=== PATIENT | male | born 2000 | race Two or more races ===

== ENCOUNTER 2019-06-25 01:46 | Emergency (ER) | payer OTHER ==
[~2019-06-25] VITALS: Ht 175.3 cm; Wt 65.3 kg
[2019-06-25 01:53] VITALS: BP 141/67
[2019-06-25] MEDS ORDERED: ORPHENADRINE ER 100 MG TABLET.ER PO ONE ×2 (02:23→02:30)
[2019-06-25] MEDS ORDERED: IBUPROFEN 600 MG TABLET. PO ONE ×2 (02:23→02:30)
[2019-06-25] MEDS ORDERED: MELO7.5T29 PO (02:24)
[2019-06-25] MEDS ORDERED: ORPH-16 PO (02:24)
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
== END 2019-06-25 02:30 | disposition home or self-care (01) ==
LOC: ER 01:46
DX: S39.012A Strain of muscle, fascia and tendon of lower back, initial encounter (principal); Z88.1 Allergy status to other antibiotic agents; V49.9XXA Car occupant (driver) (passenger) injured in unspecified traffic accident, initial encounter; Y93.89 Activity, other specified; Y92.89 Other specified places as the place of occurrence of the external cause; Y99.8 Other external cause status
CPT/HCPCS: 99283

== ENCOUNTER 2020-09-29 02:00 | Emergency (ER) | payer OTHER ==
[~2020-09-29] VITALS: Ht 175.3 cm; Wt 70.0 kg
[~2020-09-29 02:00] MED LIST: MELO7.5T29 PO; ORPH-16 PO
--- NOTE | 2020-09-29 02:05 | PHYS DOC ---
Past History Past Medical History: No Pertinent History, GERD Past Surgical History: No Surgical History Smoking: Non-smoker Alcohol Use: None Drug Use: None General Adult HPI: HPI: ".. I think I got a bad pork chop.. I got sick right after eating it.. but my friend did nt get sick... " .. I vomited. up part of the chop... 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 Patient does have some localization of pain in the epigastric and right upper quadrant on rebound. Patient denies any other new foods or questionable foods other than the pork chop. Patient denies any history of previous gallbladder issues with him or family members. No history of colitis with him or family members. No history of kidney stones with him or family members. Patient is normally healthy. Patient has not been overseas since 2019. Patient has not had any recent ill contacts. No history of trauma. Good physical condition. Up-to-date with vaccinations. Normally follows at [facility]. No recent travel. Review of Systems: Review of Systems: Constitutional: Denies fever or chills Eyes: Denies change in visual acuity HENT: Denies nasal congestion or sore throat Respiratory: Denies cough or shortness of breath Cardiovascular: Denies chest pain or edema GI: Complains of abdominal pain, nausea, vomiting,. Denies bloody stools or diarrhea : Denies dysuria Musculoskeletal: Denies back pain or joint pain Integument: Denies rash Neurologic: Denies headache, focal weakness or sensory changes Endocrine: Denies polyuria or polydipsia Lymphatic: Denies swollen glands Psychiatric: Denies depression or anxiety Family History: Family History: Noncontributory to presentation Current Medications: Current Meds: See nursing for home meds Allergies: Allergies: Allergies Coded Allergies Type Severity Reaction Last Updated Verified amoxicillin Allergy Unknown Unknown 06/25/19 Yes Physical Exam: PE: Constitutional: Well developed, well nourished, moderate acute distress, non- toxic appearance. [] HENT: Normocephalic, atraumatic, bilateral external ears normal, oropharynx moist, no oral exudates, nose normal. [] Eyes: PERRLA, EOMI, conjunctiva normal, no discharge. [] Neck: Normal range of motion, no tenderness, supple, no stridor. [] Cardiovascular:Heart rate regular rhythm, no murmur [] Lungs & Thorax: Bilateral breath sounds equal on auscultation [] Abdomen: Bowel sounds are active , distended, , soft, generalized tenderness, some localization to epigastric right upper quadrant on rebound no masses, no pulsatile masses. [] Skin: Warm, dry, no erythema, no rash. [] Back: No tenderness, no CVA tenderness. [] Extremities: No tenderness, no cyanosis, no clubbing, ROM intact, no edema. [] No psoas sign. Neurologic: Alert and oriented X 3, normal motor function, normal sensory function, no focal deficits noted. [] Psychologic: Affect anxious, judgement normal, mood normal. [] EKG: EKG: [] Radiology/Procedures: Radiology/Procedures: [][address] [address] IMAGING REPORT Signed PATIENT: ABEL ARTCCOUNT: [id number] : 2000 LOCATION: ER AGE: 20 SEX: M EXAM STATUS: REG ER ORD. PHYSICIAN: NICK LINDSAY MD REASON: Abdomen pain, nausea PROCEDURE: ACUTE ABDOMEN SERIES ACUTE ABDOMEN SERIES History: Abdominal pain, nausea. Comparison: None. Findings: Frontal chest and supine and upright views of the abdomen. Cardiomediastinal silhouette is normal. There is no pleural effusion or pneumothorax. The lungs are clear. No pneumoperitoneum is identified. No dilated air-filled loops of bowel are seen. Bowel gas pattern is nonobstructive. There is mild colon stool volume. No obvious organomegaly. Bones unremarkable. IMPRESSION: 1. No acute cardiopulmonary process. 2. Nonobstructive bowel gas pattern. Electronically signed by: Quinn Montilla MD (09/29/2020 3:29 AM) [facility] DICTATED AND SIGNED BY: QUINN MONTILLA MD DATE: 09/29/20326 CC: NICK LINDSAY MD; PCP,NO ~MTH0 0 Heart Score: Risk Factors: Risk Factors: DM, Current or recent (<one month) smoker, HTN, HLP, family history of CAD, obesity. Risk Scores: Score 0 - 3: 2.5% MACE over next 6 weeks - Discharge Home Score 4 - 6: 20.3% MACE over next 6 weeks - Admit for Clinical Observation Score 7 - 10: 72.7% MACE over next 6 weeks - Early Invasive Strategies Course & Med Decision Making: Course & Med Decision Making Pertinent Labs and Imaging studies reviewed. (See chart for details) Patient stay on a clear fluid diet. Push fluids. No solids. No milk products x24 to 48 hours. Follow-up with Ker[facility]. Tylenol and ibuprofen for pain. For active vomiting may take Zofran 8 mg up to 3 times a day. Return if any concerns. Pepcid 20 mg up to twice daily for GERD complaints. Follow-up primary. Impression: 1. Abdomen Pain 2. Viral Syndrome 3. Mild leukocytosis 12, 0 4. CK= 318 [] Dragon Disclaimer: Dragon Disclaimer: This electronic medical record was generated, in whole or in part, using a voice recognition dictation system. Departure Departure: Referrals: PCP,JOVANNI (PCP) Scripts Famotidine (PEPCID) 20 Mg Tablet 1 TAB PO BID for gerd, #60 TAB 5 Refills Prov: NICK LINDSAY MD 09/29/20 Ibuprofen (IBUPROFEN) 400 Mg Tablet 400 MG PO QIDPRN PRN for fever / pain, #120 TAB Prov: NICK LINDSAY MD 09/29/20 Acetaminophen (ACETAMINOPHEN) 500 Mg Tablet 1000 MG PO QIDPRN PRN for pain and fever, #120 TAB Prov: NICK LINDSAY MD 09/29/20 Ondansetron Hcl (ZOFRAN) 4 Mg Tablet 8 MG PO QIDPRN PRN for nv, #30 TAB Prov: NICK LINDSAY MD 09/29/20 Dragon Disclaimer This chart was dictated in whole or in part using Voice Recognition software in a busy, high-work load, and often noisy Emergency Department environment. It may contain unintended and wholly unrecognized errors or omissions. Dragon Disclaimer This chart was dictated in whole or in part using Voice Recognition software in a busy, high-work load, and often noisy Emergency Department environment. It may contain unintended and wholly unrecognized errors or omissions. NICK LINDSAY MD Sep 29, 2020 02:04
[2020-09-29 02:22] VITALS: BP 117/73
[2020-09-29] MEDS: ONDANSETRON PF 4 MG/2 ML VIAL. IVP ONE (02:43)
[2020-09-29] MEDS: KETOROLAC 30 MG/ML VIAL. IVP ONE (02:43)
[2020-09-29] MEDS: FAMOTIDINE 20 MG/2 ML VIAL IVP ONE (02:43)
[2020-09-29] MEDS: IV RINGERS SOLUTION,LACTATED 1,000 ML IV SCH (02:44)
[2020-09-29] MEDS: LIDO:MAALOX 1:1 20 ML SINGLE DOSE. PO ONE (02:44)
[2020-09-29] MEDS ORDERED: IBUP400T18 PO (02:53)
[2020-09-29] MEDS ORDERED: ONDA4TAB7 PO (02:53)
[2020-09-29] MEDS ORDERED: ACET500T68 PO (02:53)
[2020-09-29] MEDS ORDERED: FAMO-63 PO (02:53)
[2020-09-29 02:56] LABS: BASO % 0 % (0-3); EOS # 0.2 x10^3/uL (0.0-0.7); EOS % 1 % (0-3); HEMOGLOBIN 15.7 g/dL (13.0-17.5); LYMPH # 2.4 x10^3/uL (1.0-4.8); LYMPH % 20 % (24-48); MEAN CORPUSCULAR HEMOGLOBIN 29 pg (25-35); MEAN CORPUSCULAR HGB CONC 33 g/dL (31-37); MEAN CORPUSCULAR VOLUME 88 fL (79-100); MONO # 0.8 x10^3/uL (0.0-1.1); MONO % 7 % (0-9); NEUT # 8.6 x10^3uL (1.8-7.7); NEUT % 72 % (31-73); PLATELET COUNT 196 x10^3/uL (140-400); RED BLOOD COUNT 5.38 x10^6/uL (4.30-5.70); RED CELL DISTRIBUTION WIDTH 12.9 % (11.5-14.5)
[2020-09-29 02:57] LABS: CALCIUM 8.9 mg/dL (8.5-10.1); CREATININE 1.1 mg/dL (0.7-1.3); GFR 83.7; POTASSIUM 3.7 mmol/L (3.5-5.1)
[2020-09-29 03:04] LABS: DIRECT BILIRUBIN 0.2 mg/dL (0.0-0.2); TOTAL BILIRUBIN 1.1 mg/dL (0.2-1.0); TOTAL PROTEIN 7.6 g/dL (6.4-8.2)
[2020-09-29 03:11] LABS: BACTERIA,URINE FEW /HPF (0-FEW); BILIRUBIN,URINE NEG (NEG); CLARITY,URINE CLEAR; COLOR,URINE YELLOW; GLUCOSE,URINE NEG (NEG); NITRITE,URINE NEG (NEG); RBC,URINE 0 /HPF (0-2); SQUAMOUS EPITHELIAL CELL,UR OCC /LPF; UROBILINOGEN,URINE 0.2 mg/dL (0.2 mg/dL); WBC,URINE 0 /HPF (0-4)
--- NOTE | 2020-09-29 03:31 | RAD ---
ACUTE ABDOMEN SERIES History: Abdominal pain, nausea. Comparison: None. Findings: Frontal chest and supine and upright views of the abdomen. Cardiomediastinal silhouette is normal. There is no pleural effusion or pneumothorax. The lungs are clear. No pneumoperitoneum is identified. No dilated air-filled loops of bowel are seen. Bowel gas pattern i s nonobstructive. There is mild colon stool volume. No obvious organomegaly. Bones unremarkable. IMPRESSION: 1. No acute cardiopulmonary process. 2. Nonobstructive bowel gas pattern. Electronically signed by: Quinn Archer MD (09/29/2020 3:29 AM) [facility]
== END 2020-09-29 03:45 | disposition home or self-care (01) ==
LOC: ER 02:00
DX: B34.9 Viral infection, unspecified (principal); D72.829 Elevated white blood cell count, unspecified; R74.8 Abnormal levels of other serum enzymes; K21.9 Gastro-esophageal reflux disease without esophagitis; Z88.1 Allergy status to other antibiotic agents
CPT/HCPCS: 36415; 74022; 80048; 80076; 81001; 82150; 82550; 83690; 84484; 85025; 85610; 85730; 96361; 96374; 96375; 99284; J1885; J2405; J3490; J7120

== ENCOUNTER 2020-12-27 04:57 | Emergency (ER) | payer OTHER ==
[~2020-12-27] VITALS: Ht 175.3 cm; Wt 70.0 kg
[~2020-12-27 04:57] MED LIST changes: +ACET500T68 PO; +FAMO-63 PO; +IBUP400T18 PO; +ONDA4TAB7 PO
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
[2020-12-27] MEDS ORDERED: BACITRACIN ZINC TOPICAL OINT PACKET. TP ONE (05:30)
[2020-12-27] MEDS ORDERED: ACETAMINOPHEN 500 MG TABLET PO ONE (05:30)
[2020-12-27] MEDS ORDERED: LIDOCAINE 2% 20 ML VIAL. IJ ONE (05:30)
[2020-12-27] MEDS ORDERED: ACET325T9 PO (05:40)
[2020-12-27] MEDS ORDERED: IBUP400T18 PO (05:40)
[2020-12-27] MEDS ORDERED: BACI28.34 TP (05:40)
[2020-12-27] MEDS ORDERED: HYDR-1179 PO (05:40)
[2020-12-27] MEDS ORDERED: ORPHENADRINE CITRATE 60 MG/2 ML VIAL. IM ONE (06:00)
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
[2020-12-27 07:00] VITALS: BP 130/75
== END 2020-12-27 07:00 | disposition home or self-care (01) ==
LOC: ER 04:57
DX: S01.01XA Laceration without foreign body of scalp, initial encounter (principal); S30.810A Abrasion of lower back and pelvis, initial encounter; M54.2 Cervicalgia; M54.6 Pain in thoracic spine; R51.9 Headache, unspecified; R07.89 Other chest pain; K21.9 Gastro-esophageal reflux disease without esophagitis; Z88.1 Allergy status to other antibiotic agents; V47.5XXA Car driver injured in collision with fixed or stationary object in traffic accident, initial encounter; Y92.488 Other paved roadways as the place of occurrence of the external cause; Y93.89 Activity, other specified; Y99.8 Other external cause status
CPT/HCPCS: 12002; 70450; 71046; 72125; 72128; 72131; 96372; 99285; J2001; J2360

== ENCOUNTER 2021-01-14 22:45 | Emergency (ER) | payer OTHER ==
[~2021-01-14] VITALS: Ht 175.3 cm; Wt 69.0 kg
[~2021-01-14 22:45] MED LIST changes: +ACET325T9 PO; +BACI28.34 TP; +HYDR-1179 PO
[2021-01-14] MEDS ORDERED: ORPH-16 PO (23:17)
--- NOTE | 2021-01-14 23:17 | PHYS DOC ---
Past History Past Medical History: No Pertinent History, GERD Past Surgical History: No Surgical History Smoking: Non-smoker Alcohol Use: None Drug Use: None General Adult EDM: Chief Complaint: BACK PAIN OR INJURY HPI: HPI: Patient is a [age] year old [sex] who presents with [] Review of Systems: Review of Systems: Constitutional: Denies fever or chills Eyes: Denies change in visual acuity HENT: Denies nasal congestion or sore throat Respiratory: Denies cough or shortness of breath Cardiovascular: Denies chest pain or edema GI: Denies abdominal pain, nausea, vomiting, bloody stools or diarrhea : Denies dysuria Musculoskeletal: Denies back pain or joint pain Integument: Denies rash Neurologic: Denies headache, focal weakness or sensory changes Endocrine: Denies polyuria or polydipsia Lymphatic: Denies swollen glands Psychiatric: Denies depression or anxiety Allergies: Allergies: Allergies Coded Allergies Type Severity Reaction Last Updated Verified amoxicillin Allergy Unknown Unknown 06/25/19 Yes Physical Exam: PE: Constitutional: Well developed, well nourished, no acute distress, non-toxic appearance. [] HENT: Normocephalic, atraumatic, bilateral external ears normal, oropharynx moist, no oral exudates, nose normal. [] Eyes: PERRLA, EOMI, conjunctiva normal, no discharge. [] Neck: Normal range of motion, no tenderness, supple, no stridor. [] Cardiovascular:Heart rate regular rhythm, no murmur [] Lungs & Thorax: Bilateral breath sounds clear to auscultation [] Abdomen: Bowel sounds normal, soft, no tenderness, no masses, no pulsatile masses. [] Skin: Warm, dry, no erythema, no rash. [] Back: No tenderness, no CVA tenderness. [] Extremities: No tenderness, no cyanosis, no clubbing, ROM intact, no edema. [] Neurologic: Alert and oriented X 3, normal motor function, normal sensory function, no focal deficits noted. [] Psychologic: Affect normal, judgement normal, mood normal. [] Current Patient Data: Vital Signs: Vital Signs Date Time Temp Pulse Resp B/P (MAP) Pulse Ox O2 Delivery O2 Flow Rate FiO2 01/14/21 22:45 97.8 65 18 136/58 (84) 96 Room Air EKG: EKG: [] Radiology/Procedures: Radiology/Procedures: [] Heart Score: Risk Factors: Risk Factors: DM, Current or recent (<one month) smoker, HTN, HLP, family history of CAD, obesity. Risk Scores: Score 0 - 3: 2.5% MACE over next 6 weeks - Discharge Home Score 4 - 6: 20.3% MACE over next 6 weeks - Admit for Clinical Observation Score 7 - 10: 72.7% MACE over next 6 weeks - Early Invasive Strategies Course & Med Decision Making: Course & Med Decision Making Pertinent Labs and Imaging studies reviewed. (See chart for details) [] Dragon Disclaimer: Dragon Disclaimer: This electronic medical record was generated, in whole or in part, using a voice recognition dictation system. Departure Departure: Impression: Primary Impression: Back pain Qualified Codes: M54.42 - Lumbago with sciatica, left side Disposition: 01 HOME / SELF CARE / HOMELESS Condition: STABLE Referrals: PCP,UNKNOWN (PCP) Patient Instructions: Back Pain, Adult, [id number], Sciatica, [id number] Additional Instructions: ICE area of discomfort 20 min on then leave off next 20 mins. Repeat several times daily as needed for next few days. Take over the counter Tylenol and/or Ibuprofen as needed for pain. May take in addition to prescribed muscle relaxer. Call Dr. Ariel Salcedo (Pain management) for further evaluation and treatment. [address] [address] Scripts Orphenadrine Citrate (ORPHENADRINE CITRATE) 100 Mg Tablet.er 1 TAB PO BID PRN for MUSCLE PAIN, #14 TAB 0 Refills Prov: YANET NUÑEZ DO 01/14/21 YANET NUÑEZ DO January 14, 2021 23:17
[2021-01-14] MEDS ORDERED: DEXAMETHASONE 4 MG TABLET PO ONE (23:30)
[2021-01-14] MEDS ORDERED: ORPHENADRINE CITRATE 60 MG/2 ML VIAL. IM ONE (23:30)
[2021-01-14 23:35] VITALS: BP 130/78
== END 2021-01-14 23:35 | disposition home or self-care (01) ==
LOC: ER 22:45
DX: M54.42 Lumbago with sciatica, left side (principal); K21.9 Gastro-esophageal reflux disease without esophagitis; Z88.1 Allergy status to other antibiotic agents
CPT/HCPCS: 96372; 99283; J2360; J8540

== ENCOUNTER 2021-02-15 18:40 | Emergency (ER) | payer OTHER ==
[~2021-02-15] VITALS: Ht 175.3 cm; Wt 68.6 kg
[2021-02-15 18:50] VITALS: BP 123/85
[2021-02-15] MEDS ORDERED: ONDANSETRON ODT 4 MG TAB.RAPDIS PO ONE (19:00)
[2021-02-15] MEDS ORDERED: IBUPROFEN 600 MG TABLET. PO ONE (19:00)
[2021-02-15] MEDS ORDERED: ACETAMINOPHEN 500 MG TABLET PO ONE (19:00)
--- NOTE | 2021-02-15 19:02 | PHYS DOC ---
Past History Past Medical History: GERD Past Surgical History: No Surgical History Smoking: Non-smoker Alcohol Use: Occasionally Drug Use: None Adult General Chief Complaint Chief Complaint: CHEST PAIN HPI HPI Patient is an otherwise healthy 20-year-old male who presents with 2 days of cough, congestion, left-sided pleuritic chest pain when coughing, intermittent nausea with a couple episodes of nonbloody nonbilious emesis. Denies any recent traumas, travel, known ill contacts, fevers, rash, abdominal pain, dysuria, hematuria, blood in the stool or diarrhea. States he had not taken anything for symptom control at home. EKG noted above and normal. Chest x-ray not concerning. Review of Systems Review of Systems Review of systems otherwise unremarkable except noted in HPI Allergies Allergies Allergies Coded Allergies Type Severity Reaction Last Updated Verified amoxicillin Allergy Unknown Unknown 06/25/19 Yes Physical Exam Physical Exam Constitutional: Well developed, well nourished, no acute distress, non-toxic appearance. [] HENT: Normocephalic, atraumatic, bilateral external ears normal, oropharynx moist, no oral exudates, nose normal. [] Eyes:conjunctiva normal, no discharge. [] Neck: Normal range of motion, no tenderness, supple, no stridor. [] Cardiovascular:Heart rate regular rhythm, no murmur [] Lungs & Thorax: Mild upper respiratory congestion otherwise good air movement with no wheeze or respiratory distress Abdomen: soft, no tenderness, no masses, no pulsatile masses. [] Skin: Warm, dry, no erythema, no rash. [] Neurologic: Alert and oriented X 3, no focal deficits noted. [] Psychologic: Affect normal, judgement normal, mood normal. [] Current Patient Data Vital Signs Vital Signs Date Time Temp Pulse Resp B/P (MAP) Pulse Ox O2 Delivery O2 Flow Rate FiO2 02/15/21 18:50 98.1 72 16 123/85 (98) 99 Room Air EKG EKG EKG with a rate of 63, QRS of 90, QTC of 373, no STEMI. [] Radiology/Procedures Radiology/Procedures [] Heart Score C/O Chest Pain: N/A Risk Factors: Risk Factors: DM, Current or recent (<one month) smoker, HTN, HLP, family history of CAD, obesity. Risk Scores: Risk Factors: DM, Current or recent (<one month) smoker, HTN, HLP, family history of CAD, obesity. Course & Med Decision Making Course & Med Decision Making Patient is a 20-year-old male who presents with 2 days of cough, congestion, pleuritic chest pain associated with nausea and vomiting Vital signs not concerning. Physical exam noted above. Patient given Tylenol, ibuprofen and Zofran. Able to take p.o. in the ED. EKG noted above and normal. Patient requesting work note for tomorrow to allow to stay home when rest and hydrate. Given work note. Advised to follow-up with primary care next week. Gave return precautions to the ED. Patient grateful, verbalized understanding and agreed with plan of discharge. [] Dragon Disclaimer Dragon Disclaimer This electronic medical record was generated, in whole or in part, using a voice recognition dictation system. Departure Departure: Impression: Primary Impression: Viral syndrome Disposition: HOME / SELF CARE / HOMELESS Condition: GOOD Referrals: PCP,UNKNOWN (PCP) SAROJ LAKHANI MD Patient Instructions: Viral Syndrome Additional Instructions: Thank you for coming into the emergency department today to last to take care of you. Please read all the attached information very carefully. You can use [id number] medications for symptom control at home as discussed. Please take your nausea medicine as prescribed to allow appropriate hydration as discussed. You are given a work note. Please follow-up with your primary care physician when you can to set up a follow-up visit. Please come back to the emergency department with new or concerning symptoms as discussed. Scripts Ondansetron Hcl (ZOFRAN) 4 Mg Tablet 1 TAB PO PRN Q6HRS PRN for NAUSEA, #5 TAB 3 Refills Prov: DANUTA CRUZ MD 02/15/21 DANUTA CRUZ MD Feb 15, 2021 19:02
--- NOTE | 2021-02-15 19:14 | EKG ---
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
[2021-02-15] MEDS ORDERED: ONDA4TAB7 PO (19:30)
--- NOTE | 2021-02-15 20:17 | RAD ---
Exam: Chest one view INDICATION: Cough, chest TECHNIQUE: Frontal view of the chest Comparisons: 12/27/2020 FINDINGS: The cardiomediastinal silhouette and pulmonary vessels are within normal limits. The lung and pleural spaces are clear. IMPRESSION: No acute cardiopulmonary process. Electronically signed by: Kurtis Salazar MD (02/15/2021 8:15 PM) DEVANTE
== END 2021-02-15 19:35 | disposition home or self-care (01) ==
LOC: ER 18:40
DX: B34.9 Viral infection, unspecified (principal); K21.9 Gastro-esophageal reflux disease without esophagitis; Z88.1 Allergy status to other antibiotic agents
CPT/HCPCS: 71045; 93005; 99284; Q0162

== ENCOUNTER 2021-11-28 21:34 | Emergency (ER) | payer OTHER ==
[~2021-11-28] VITALS: Ht 175.3 cm; Wt 68.6 kg
[2021-11-28 21:52] VITALS: BP 168/94
[2021-11-28] MEDS ORDERED: NAPR500T8 PO (21:59)
[2021-11-28] MEDS ORDERED: ORPH-16 PO (21:59)
[2021-11-28] MEDS ORDERED: KETOROLAC 30 MG/ML VIAL. IM ONE (22:00)
[2021-11-28] MEDS ORDERED: LIDOCAINE (700MG/PATCH) PATCH. TD SCH (22:00)
[2021-11-28] MEDS ORDERED: ORPHENADRINE CITRATE 60 MG/2 ML VIAL. IM ONE (22:00)
--- NOTE | 2021-11-28 22:02 | PHYS DOC ---
Past History Past Medical History: GERD Past Surgical History: No Surgical History Smoking: Non-smoker Alcohol Use: Occasionally Drug Use: None General Adult EDM: Chief Complaint: BACK INJURY HPI: HPI: Patient is a 21 year old otherwise healthy male who presents with thoracic back pain. Patient states that earlier this morning, he had a fitness test for the in which he "pulled" his back doing a lift. About an hour prior to arrival, patient states he was carrying a laundry basket up the stairs to his apartment, when his back "seized up" and he fell backwards. Patient states he slid down about 89 steps. Patient denies headache, focal weakness, bowel or bladder incontinence, saddle anesthesia or sensory changes, including lower extremity paresthesias. Patient has no other injuries or complaints at this time. Review of Systems: Review of Systems: Constitutional: Denies fever, chills or generalized weakness Eyes: Denies change in visual acuity, visual field deficits or discharge HENT: Denies ear pain, nasal congestion or sore throat Respiratory: Denies cough or shortness of breath Cardiovascular: Denies chest pain, palpitations or edema GI: Denies abdominal pain, nausea, vomiting, bloody stools or diarrhea : Denies dysuria or hematuria Musculoskeletal: See HPI Integument: Denies rash or other skin lesion Neurologic: See HPI Current Medications: Current Meds: Current Medications Medications (Trade) Dose Ordered Sig/[facility] Start Time Stop Time Status Last Admin Dose Admin Ketorolac Tromethamine (Toradol 30mg Vial) 30 mg 1X ONCE 11/28/21 21:45 11/28/21 21:46 UNV Lidocaine (Lidoderm) 1 patch DAILY 11/28/21 21:50 UNV Orphenadrine Citrate (Norflex) 60 mg 1X ONCE 11/28/21 21:45 11/28/21 21:46 UNV Allergies: Allergies: Allergies Coded Allergies Type Severity Reaction Last Updated Verified amoxicillin Allergy Unknown Unknown 06/25/19 Yes Physical Exam: PE: Constitutional: Well developed, well nourished, no acute distress, non-toxic appearance. HENT: Normocephalic, atraumatic, bilateral external ears normal, nose normal. Eyes: EOMI, conjunctiva normal, no discharge. Neck: Normal range of motion, no step-off, no midline/bony tenderness, no paraspinal tenderness. Skin: Warm, dry, no erythema, no rash. Back: No step-off, no bony or midline tenderness, low thoracic paraspinal tenderness with spasm appreciated. Extremities: No tenderness, no cyanosis, no clubbing, ROM intact, no edema, no obvious deformity. Neurologic: Alert and oriented x4, normal motor function, normal sensory function, no focal deficits noted. Current Patient Data: Vital Signs: VS - Last 72 Hours, by Label Date Time Temp Pulse Resp B/P (MAP) Pulse Ox O2 Delivery O2 Flow Rate FiO2 11/28/21 21:52 98.7 92 16 168/94 (118) 97 Room Air Heart Score: C/O Chest Pain: No Course & Med Decision Making: Course & Med Decision Making Pertinent Labs and Imaging studies reviewed. (See chart for details) Muecs Disclaimer: Muecs Disclaimer: This electronic medical record was generated, in whole or in part, using a voice recognition dictation system. Departure Departure: Impression: Primary Impression: Strain of thoracic back region Additional Impression: Elevated blood pressure reading Disposition: HOME / SELF CARE / HOMELESS Condition: IMPROVED Referrals: PCP,UNKNOWN (PCP) Patient Instructions: Back Pain, Adult, [id number], Muscle Strain, [id number] Additional Instructions: EMERGENCY DEPARTMENT GENERAL DISCHARGE INSTRUCTIONS Thank you for coming to [facility] (ED) today and trusting us with you care. We trust that you had a positive experience in our Emergency Department. If you wish to speak to the department management, you may call the director at [phone]. YOUR FOLLOW UP INSTRUCTIONS ARE FOLLOWS: 1. Follow up with your primary care doctor. If you do not have a primary doctor, please ask for a resource list of physicians or clinics that may be able to assist you with follow up care. 2. The emergency provider has interpreted your imaging studies, if any were ordered. The radiology computer customer support specialist also reviewed them. If there is a change in the findings, you will be notified in 48 hours when at all possible. 3. If a lab test or culture has been done, your results will be reviewed and you will be notified if you need a change in treatment. 4. Follow instructions verbalized to you and refer to the printouts if needed. ADDITIONAL INSTRUCTIONS AND INFORMATION: 1. Your care today has been supervised by a physician who is specially trained in emergency care. Many problems require more than one evaluation for a complete diagnosis and treatment. We recommend that you schedule your follow up appointment as recommended to ensure complete treatment of you illness or injury. If you are unable to obtain follow up care and continue to have a problem, or if your condition worsens, we recommend that you return to the ED. 2. We are not able to safely determine your condition over the phone nor are we able to give sound medical advice over the phone. For these safety reasons, if you call for medical advice we will ask you to come to the ED for further evaluation. 3. If you have any questions regarding these discharge instructions please call the ED at [phone]. SAFETY INFORMATION: In the interest of safety, wellness, and injury prevention; we encourage you to wear your seat belt, if you smoke; quite smoking, and we encourage family to use a protective helmet for bicycling and other sporting events that present an increased risk for head injury. IF YOUR SYMPTOMS WORSEN OR NEW SYMPTOMS DEVELOP, OR YOU HAVE CONCERNS ABOUT YOUR CONDITION; OR IF YOUR CONDITION WORSENS WHILE YOU ARE WAITING FOR YOUR FOLLOW UP APPOINTMENT; EITHER CONTACT YOUR PRIMARY CARE DOCTOR, THE PHYSICIAN WHOSE NAME AND NUMBER YOU WERE GIVEN, OR RETURN TO THE ED IMMEDIATELY. Scripts Naproxen (NAPROXEN) 500 Mg Tablet.dr 1 TAB PO BID for pain, #30 TAB 0 Refills Prov: CHELLE BOND 11/28/21 Orphenadrine Citrate (ORPHENADRINE CITRATE) 100 Mg Tablet.er 1 TAB PO BID for pain, #20 TAB 0 Refills Prov: CHELLE BOND 11/28/21 CHELLE BOND Nov 28, 2021 22:02
== END 2021-11-28 22:19 | disposition home or self-care (01) ==
LOC: ER 21:34
DX: S29.012A Strain of muscle and tendon of back wall of thorax, initial encounter (principal); R03.0 Elevated blood-pressure reading, without diagnosis of hypertension; K21.9 Gastro-esophageal reflux disease without esophagitis; Z88.1 Allergy status to other antibiotic agents; W18.39XA Other fall on same level, initial encounter; Y93.89 Activity, other specified; Y92.89 Other specified places as the place of occurrence of the external cause; Y99.8 Other external cause status
CPT/HCPCS: 96372; 99284; J1885; J2360